=== PATIENT | male | born 1985 | race Caucasian/White ===

== ENCOUNTER 2018-06-04 14:57 | Emergency (ER) | payer SELFPAY ==
[~2018-06-04] VITALS: Ht 175.3 cm; Wt 77.1 kg
[2018-06-04 15:02] VITALS: BP 122/86
[2018-06-04] MEDS ORDERED: ALBUTEROL SULFATE 2.5 MG/3 ML NEBU. NEB ONE (15:30)
[2018-06-04] MEDS ORDERED: predniSONE 10 MG TABLET PO ONE (15:30)
[2018-06-04] MEDS ORDERED: PRED50TA PO (15:46)
[2018-06-04] MEDS ORDERED: AZIT250T PO (15:46)
[2018-06-04] MEDS ORDERED: ALBU2.5V8 INH (15:46)
--- NOTE | 2018-06-04 15:47 | PHYS DOC ---
Past Medical History Past Medical History: No Pertinent History Past Surgical History: No Surgical History Alcohol Use: None Drug Use: None Adult General Chief Complaint Chief Complaint: Congestion HPI HPI Patient is a 33 year old male who presents with cough, wheezing and congestion. He states he has been worsening over the past two days. He has tried OTC cold medications with little relief. Review of Systems Review of Systems Constitutional: Denies fever or chills [] Eyes: Denies change in visual acuity, redness, or eye pain [] HENT: See HPI Respiratory: See HPI Cardiovascular: No additional information not addressed in HPI [] GI: Denies abdominal pain, nausea, vomiting, bloody stools or diarrhea [] : Denies dysuria or hematuria [] Musculoskeletal: Denies back pain or joint pain [] Integument: Denies rash or skin lesions [] Neurologic: Denies headache, focal weakness or sensory changes [] Endocrine: Denies polyuria or polydipsia [] All other systems were reviewed and found to be within normal limits, except as documented in this note. Current Medications Current Medications Current Medications Medications (Trade) Dose Ordered Sig/Jair Start Time Stop Time Status Last Admin Dose Admin Albuterol Sulfate (Ventolin Neb Soln) 2.5 mg 1X ONCE 06/04/18 15:30 06/04/18 15:31 DC 06/04/18 15:31 2.5 MG Prednisone (Prednisone) 50 mg 1X ONCE 06/04/18 15:30 06/04/18 15:31 DC 06/04/18 15:34 50 MG Allergies Allergies Allergies Coded Allergies Type Severity Reaction Last Updated Verified No Known Drug Allergies 06/04/18 No Physical Exam Physical Exam Constitutional: Well developed, well nourished, no acute distress, non-toxic appearance. [] HENT: Normocephalic, atraumatic, bilateral tympanic membranes normal, oropharynx moist, no oral exudates, nose normal. [] Eyes: PERRLA, EOMI, conjunctiva normal, no discharge. [] Neck: Normal range of motion, no tenderness, supple, no stridor. [] Cardiovascular:Heart rate regular rhythm, no murmur [] Lungs & Thorax: Bilateral breath sounds are decreased with wheezing Abdomen: Bowel sounds normal, soft, no tenderness, no masses, no pulsatile masses. [] Skin: Warm, dry, no erythema, no rash. [] Back: No tenderness, no CVA tenderness. [] Extremities: No tenderness, no cyanosis, no clubbing, ROM intact, no edema. [] Neurologic: Alert and oriented X 3, normal motor function, normal sensory function, no focal deficits noted. [] Psychologic: Affect normal, judgement normal, mood normal. [] Current Patient Data Vital Signs EKG EKG [] Radiology/Procedures Radiology/Procedures [] Course & Med Decision Making Course & Med Decision Making Pertinent Labs and Imaging studies reviewed. (See chart for details) []The patient was given prednisone and albuterol in the ED with resolution of his wheezing. Dragon Disclaimer Dragon Disclaimer This electronic medical record was generated, in whole or in part, using a voice recognition dictation system. Departure Departure Impression: Primary Impression: Upper respiratory infection Additional Impression: Cough Disposition: 01 HOME, SELF-CARE Condition: STABLE Referrals: NO PCP (PCP) Patient Instructions: Cough, Adult, Upper Respiratory Infection, Adult Additional Instructions: Take medications as directed. Follow-up with your primary care provider in one week for recheck or return to the emergency department if worsening. Scripts Azithromycin (ZITHROMAX) 250 Mg Tablet 1 PKG PO UD for cough, #1 PKG Prov: BARBARA HEDRICK APRN 06/04/18 Prednisone (PREDNISONE) 50 Mg Tablet 1 TAB PO DAILY for cough, #5 TAB Prov: BARBARA HEDRICK APRN 06/04/18 Albuterol Sulfate (Proair Hfa) 8.5 Gm Hfa.aer.ad 1 PUFF INH PRN Q6HRS PRN for SHORTNESS OF BREATH, #1 INHALER Prov: BARBARA HEDRICK APRN 06/04/18 Problem Qualifiers BARBARA HEDRICK APRN Jun 04, 2018 15:47
== END 2018-06-04 15:58 | disposition home or self-care (01) ==
LOC: ER 14:57
DX: J06.9 Acute upper respiratory infection, unspecified (principal)
CPT/HCPCS: 94640; 99283; J7512; J7613